=== PATIENT | female | born 1935 | race Caucasian/White ===

== ENCOUNTER 2017-12-06 10:40 | Emergency (ER) | payer OTHER ==
[~2017-12-06] VITALS: Ht 167.6 cm; Wt 90.9 kg
[~2017-12-06 10:40] MED LIST: ASPIR 8181 M1 PO; ASPIRIN E.C.81 M1 PO; ASPIRIN81 M1 PO; ATENOLOL25 M1 PO; ATENOLOL50 M1 PO; ATIVAN0.5 MG PO; ATIVAN1 MG PO; AVAPRO150 MG PO; Apresoline PO; Aspirin PO; Ativan PO; BENADRYL50 MG PO; BENTYL20 MG PO; CATAPRES0.2 MG PO; CLARITIN10 MG PO; COUGH SYRUP; FAMOTIDINE20 MG PO; HYDRALAZINE HCL50 MG PO; HYDROCHLOROTH12.5 M3 PO; HYDROCODON-ACE1 EAC7 PO; Imdur PO; LIPITOR40 MG PO; Lipitor PO; MAALOX PLUS1 TABLET PO; MACROBID100 MG PO; NASAL SPRAY; NASAL SPRAY30 M1; NEXIUM40 MG PO; NITROGLYCERIN0.3 MG SL; NITROGLYCERIN0.4 MG SL; NITROSTAT0.4 MG SL; PEPCID AC20 MG PO; PEPCID20 MG PO; PEPCID40 MG PO; PERCOCET 10/1 TABLET PO; PERCOCET 5/31 TABLET PO; PLAVIX75 MG PO; Pepcid PO; Plavix PO; Protonix PO; ROBAXIN500 MG PO; ST. JOSEPH ASPI81 MG PO; TENORMIN25 MG PO; TENORMIN50 MG PO; TRAMADOL HCL50 MG PO; TUMS300 MG PO; TUMS500 MG PO; TYLENOL REGULA325 MG PO; TYLENOL325 M1 PO; Tenormin PO; VITAMIN D2000 UNIT PO; VITAMIN D250000 UNIT PO; XARELTO10 MG PO; ZETIA10 MG PO; ZOFRAN4 MG PO; [UNRECOGNIZED DRUG - OTHER] PO
[2017-12-06 11:23] LABS: HEMATOCRIT 42.3 % (36.0-46.0); HEMOGLOBIN 14.1 G/DL (11.9-15.5); MCH 31.8 PG (29.0-34.0); MCHC 33.3 G/DL (30.0-36.0); MCV 95.3 FL (83-99); PLATELET COUNT 195 K/uL (156-360); RBC DIS.WIDTH-CV 13.2 % (11.8-14.6); RBC DIS.WIDTH-SD 46.1 % (39-53); RED BLOOD COUNT 4.44 M/uL (3.80-5.20)
[2017-12-06 11:37] LABS: CHLORIDE 105 mEq/L (99-109); POTASSIUM 4.4 mEq/L (3.7-5.4); SODIUM 140 mEq/L (136-147)
[2017-12-06 11:39] LABS: GLUCOSE 111 mg/dL (70-99)
[2017-12-06 11:42] LABS: APPEARANCE SL.HAZY ((CLEAR)); BILIRUBIN NEGATIVE; BLOOD NEGATIVE; COLOR YELLOW ((YELLOW)); GLUCOSE (STRIP) NEGATIVE; KETONES 5; LEUKOCYTES MODERATE; NITRITE NEGATIVE; PROTEIN (STRIP) 30; SPECIFIC GRAVITY 1.013 (1.000-1.030); UROBILINOGEN 0.2 MG/DL (0.2-1.0)
[2017-12-06 11:43] LABS: CREATININE 1.1 mg/dL (0.6-1.3); GFR ESTIMATE (CALCULATED) 51 mL/min/
[2017-12-06 11:44] LABS: UREA NITROGEN (BUN) 26 mg/dL (9-23)
[2017-12-06 11:55] LABS: BACTERIA RARE /HPF; EPITHELIAL CELLS 1+ /HPF; HYALINE CASTS 0-5 /LPF; MUCUS TRACE /LPF; RED BLOOD CELLS 0-5 /HPF (0-5); UCUL ADDED? YES
[2017-12-06 12:17] LABS: ALBUMIN 3.8 g/dL (3.2-4.8)
[2017-12-06 12:20] LABS: TOTAL PROTEIN 7.3 g/dL (6.4-8.3)
[2017-12-06 12:22] LABS: TOTAL BILIRUBIN 0.8 mg/dL (0.0-1.0)
[2017-12-06 12:23] LABS: ALKALINE PHOSPHATASE 86 IU/L (3-129)
[2017-12-06 12:25] LABS: AST (GOT) 17 IU/L (2-34); DIRECT BILIRUBIN 0.3 mg/dL (0.0-0.3)
[2017-12-06 12:26] LABS: ALT (GPT) 9 IU/L (3-49); LIPASE 34 U/L (1.0-51.0)
[2017-12-06 15:02] VITALS: BP 158/96
== END 2017-12-06 15:06 | disposition home or self-care (01) ==
LOC: EME 10:40
DX: S30.1XXA Contusion of abdominal wall, initial encounter (principal); I71.4 Abdominal aortic aneurysm, without rupture; W18.30XA Fall on same level, unspecified, initial encounter; Z79.01 Long term (current) use of anticoagulants; I10 Essential (primary) hypertension; Z79.82 Long term (current) use of aspirin; K21.9 Gastro-esophageal reflux disease without esophagitis; K58.9 Irritable bowel syndrome, unspecified; F41.9 Anxiety disorder, unspecified; I25.10 Atherosclerotic heart disease of native coronary artery without angina pectoris; Z95.5 Presence of coronary angioplasty implant and graft; Z88.8 Allergy status to other drugs, medicaments and biological substances; Z88.5 Allergy status to narcotic agent; Z88.2 Allergy status to sulfonamides; Z88.0 Allergy status to penicillin; Z88.1 Allergy status to other antibiotic agents
CPT/HCPCS: 74177; 80048; 80076; 81003; 83605; 83690; 85027; 87077; 87086; 87186; 99281; 99285; J2765; J7030

== ENCOUNTER 2017-12-11 13:26 | Observation (INO) | payer OTHER ==
[~2017-12-11] VITALS: Ht 167.6 cm; Wt 90.0 kg
[2017-12-11 14:07] LABS: HEMATOCRIT 40.8 % (36.0-46.0); HEMOGLOBIN 13.6 G/DL (11.9-15.5); MCH 31.4 PG (29.0-34.0); MCHC 33.3 G/DL (30.0-36.0); MCV 94.2 FL (83-99); RBC DIS.WIDTH-CV 12.7 % (11.8-14.6); RBC DIS.WIDTH-SD 44.1 % (39-53); RED BLOOD COUNT 4.33 M/uL (3.80-5.20); WHITE BLOOD COUNT 8.5 K/uL (4.1-10.2)
[2017-12-11 14:18] LABS: PLATELET COUNT 267 K/uL (156-360)
[2017-12-11 14:21] LABS: CHLORIDE 102 mEq/L (99-109); POTASSIUM 4.4 mEq/L (3.7-5.4); SODIUM 138 mEq/L (136-147)
[2017-12-11 14:22] LABS: GLUCOSE 115 mg/dL (70-99)
[2017-12-11 14:26] LABS: GFR ESTIMATE (CALCULATED) 57 mL/min/
[2017-12-11 14:27] LABS: UREA NITROGEN (BUN) 21 mg/dL (9-23)
[2017-12-11] MEDS ORDERED: ATENOLOL25 MG PO (19:13)
[2017-12-11] MEDS ORDERED: ATIVAN1 MG PO (19:14)
[2017-12-11] MEDS ORDERED: LEVAQUIN750 MG PO (19:18)
[2017-12-11] MEDS ORDERED: ELIQUIS5 MG PO (19:20)
[2017-12-11] MEDS ORDERED: ZANTAC150 MG PO (19:20)
[2017-12-11] MEDS ORDERED: CLONIDINE HCL0.1 MG PO (19:22)
[2017-12-11] MEDS ORDERED: HYDROCODON-ACE1 EAC9 PO (19:24)
[2017-12-11 20:32] LABS: APPEARANCE CLEAR ((CLEAR)); BILIRUBIN NEGATIVE; BLOOD NEGATIVE; COLOR YELLOW ((YELLOW)); GLUCOSE (STRIP) NEGATIVE; KETONES 5; LEUKOCYTES NEGATIVE; NITRITE NEGATIVE; PROTEIN (STRIP) NEGATIVE; SPECIFIC GRAVITY 1.036 (1.000-1.030); UCUL ADDED? NO; UROBILINOGEN 0.2 MG/DL (0.2-1.0)
[2017-12-11 21:01] VITALS: BP 165/93
[2017-12-11 23:50] VITALS: BP 168/74; BP 184/96
[2017-12-12 03:46] VITALS: BP 169/84
[2017-12-12 07:20] VITALS: BP 190/96
[2017-12-12 09:14] LABS: INTER. NORMALIZED RATIO 1.6
[2017-12-12 09:17] LABS: PTT 33.1 SEC (25-37)
[2017-12-12 09:30] VITALS: BP 155/74
[2017-12-12 12:10] LABS: HEMATOCRIT 37.7 % (36.0-46.0); HEMOGLOBIN 12.5 G/DL (11.9-15.5); MCH 30.8 PG (29.0-34.0); MCHC 33.2 G/DL (30.0-36.0); MCV 92.9 FL (83-99); PLATELET COUNT 236 K/uL (156-360); RBC DIS.WIDTH-CV 12.7 % (11.8-14.6); RBC DIS.WIDTH-SD 43.7 % (39-53); RED BLOOD COUNT 4.06 M/uL (3.80-5.20); WHITE BLOOD COUNT 7.1 K/uL (4.1-10.2)
[2017-12-12 12:15] VITALS: BP 167/89
[2017-12-12 16:12] VITALS: BP 164/95
== END 2017-12-12 19:28 | disposition home or self-care (01) ==
LOC: EME 13:26 → EDOF 18:54 → ENRESERV 18:56 → 5WEST 20:42
PROVIDERS: Hospitalist; Physician Assistant Medical
DX: S30.1XXA Contusion of abdominal wall, initial encounter (principal); R53.1 Weakness; R11.0 Nausea; Z79.01 Long term (current) use of anticoagulants; Z79.82 Long term (current) use of aspirin; R10.31 Right lower quadrant pain; I48.91 Unspecified atrial fibrillation; I25.10 Atherosclerotic heart disease of native coronary artery without angina pectoris; Z95.5 Presence of coronary angioplasty implant and graft; I10 Essential (primary) hypertension; F41.9 Anxiety disorder, unspecified; E78.5 Hyperlipidemia, unspecified; K21.9 Gastro-esophageal reflux disease without esophagitis; K58.9 Irritable bowel syndrome, unspecified; Z86.19 Personal history of other infectious and parasitic diseases; E66.9 Obesity, unspecified; Z68.32 Body mass index [BMI] 32.0-32.9, adult; Z87.442 Personal history of urinary calculi; Z90.49 Acquired absence of other specified parts of digestive tract; Z90.710 Acquired absence of both cervix and uterus; Z82.5 Family history of asthma and other chronic lower respiratory diseases; Z88.0 Allergy status to penicillin; Z88.1 Allergy status to other antibiotic agents; Z88.2 Allergy status to sulfonamides; Z88.5 Allergy status to narcotic agent; Z88.8 Allergy status to other drugs, medicaments and biological substances
CPT/HCPCS: 74177; 80048; 81003; 85027; 85610; 85730; 99281; 99285; G0378; J2765; J7030